=== PATIENT | male | born 1940 | race Caucasian/White ===

== ENCOUNTER 2018-05-19 11:49 | Day surgery (SDC) | payer MEDICARE ==
[~2018-05-19] VITALS: Ht 172.7 cm; Wt 93.5 kg
[2018-05-19] VITALS (9 sets, daily range): BP systolic 113–167; BP diastolic 63–79
[2018-05-19] MEDS ORDERED: ASPI81TA52 PO (12:28)
[2018-05-19] MEDS ORDERED: OMEP40CA37 PO (12:30)
[2018-05-19] MEDS ORDERED: PRAV80TA3 PO (12:30)
[2018-05-19] MEDS ORDERED: sod bicarbonate 150mEq in D5W 1,150 ML IV ONE ×2 (12:30→20:30)
[2018-05-19] MEDS ORDERED: BUDE10.22 INH (12:31)
[2018-05-19] MEDS ORDERED: HYDR25TA4 PO (12:32)
[2018-05-19] MEDS ORDERED: LISI40TA4 PO (12:32)
[2018-05-19] MEDS ORDERED: LORA1TAB PO (12:33)
[2018-05-19] MEDS ORDERED: ZOLP10TA5 PO (12:34)
[2018-05-19] MEDS ORDERED: AMOX500C2 PO (12:35)
[2018-05-19 12:38] LABS: BASOPHILS # (AUTO) 0.1 X10'3 (0-0.2); BASOPHILS % (AUTO) 0.7 % (0-1); EOSINOPHILS # (AUTO) 0.3 X10'3 (0-0.9); EOSINOPHILS % (AUTO) 3.1 % (0-6); LYMPHOCYTES # (AUTO) 1.7 X10'3 (1.1-4.8); LYMPHOCYTES % (AUTO) 20.4 % (21-51); MEAN CORPUSCULAR HEMOGLOBIN 32.7 PG (27.0-31.0); MEAN CORPUSCULAR HGB CONC 34.3 % (33.0-36.5); MEAN CORPUSCULAR VOLUME 95.3 FL (78-98); MEAN PLATELET VOLUME 6.9 FL (7.4-10.4); MONOCYTES # (AUTO) 0.7 X10'3 (0-0.9); MONOCYTES % (AUTO) 8.5 % (2-12); NEUTROPHILS # (AUTO) 5.6 X10'3 (1.8-7.7); NEUTROPHILS % (AUTO) 67.3 % (42-75); PRE OP HEMATOCRIT 48.8 % (42.0-52.0); PRE OP HEMOGLOBIN 16.7 g/dL (14.0-17.9); PRE OP PLATELET COUNT 236 X10'3 (140-440); RED BLOOD COUNT 5.12 X10'6 (4.70-6.10)
[2018-05-19] MEDS ORDERED: pneumococcal 23-VAL P-sac vacc 25 mcg/0.5ml vial IMVAC ONE (12:55)
[2018-05-19 13:08] LABS: PROTHROMBIN TIME 10.1 SECONDS (9.0-12.0)
[2018-05-19 13:12] LABS: ANION GAP 13 (8-16); BLOOD UREA NITROGEN 15 MG/DL (7-18); CALCIUM 9.4 MG/DL (8.5-10.1); CHLORIDE 100 MMOL/L (99-107); CREATININE 1.07 MG/DL (0.60-1.10); GLUCOSE 94 MG/DL (70-104); MAGNESIUM 1.8 MG/DL (1.5-2.4); POTASSIUM 4.1 MMOL/L (3.5-5.1); SODIUM 136 MMOL/L (135-145); TOTAL CARBON DIOXIDE 22.7 MMOL/L (24-32); eGFR 67 ML/MIN
[2018-05-19] MEDS ORDERED: midazolam 2 mg/2 ml injection ONE ×2 (14:58→15:30)
[2018-05-19] MEDS ORDERED: fentaNYL/PF 50MCG/1 ML 2ML syringe ONE (14:59)
[2018-05-19] MEDS ORDERED: iohexol 350MG/ML 100ml bottle IV ONE (14:59)
[2018-05-19] MEDS ORDERED: LIDOcaine 1% 30ml preserv. free vial ONE (14:59)
[2018-05-19] MEDS ORDERED: iohexol 350 MG/ML 50ML vial IV ONE (14:59)
[2018-05-19] MEDS ORDERED: normal saline 1000ml 1,000 ML IV SCH (17:30)
== END 2018-05-19 19:20 | disposition home or self-care (01) ==
LOC: SSTAY O 11:49
PROVIDERS: ATTEND Internal Medicine Cardiovascular Disease
DX: I25.10 Atherosclerotic heart disease of native coronary artery without angina pectoris (principal); I35.0 Nonrheumatic aortic (valve) stenosis; I10 Essential (primary) hypertension; E78.5 Hyperlipidemia, unspecified; I45.2 Bifascicular block; K21.9 Gastro-esophageal reflux disease without esophagitis; J45.998 Other asthma; I44.0 Atrioventricular block, first degree; I49.5 Sick sinus syndrome; I35.8 Other nonrheumatic aortic valve disorders; Z79.82 Long term (current) use of aspirin; Z79.2 Long term (current) use of antibiotics; Z23 Encounter for immunization; Z87.891 Personal history of nicotine dependence; Z72.89 Other problems related to lifestyle; Z85.828 Personal history of other malignant neoplasm of skin; Z88.8 Allergy status to other drugs, medicaments and biological substances; Z79.899 Other long term (current) drug therapy; Z98.890 Other specified postprocedural states; Z83.3 Family history of diabetes mellitus; Z82.49 Family history of ischemic heart disease and other diseases of the circulatory system
CPT/HCPCS: 36415; 80048; 83735; 85025; 85610; 90732; 93005; 93460; 99152; 99153; A6257; C1769; C1894; J1644; J2250; J3010; J3490; J7030; Q9967; A4620

== ENCOUNTER 2024-08-14 07:24 | Day surgery (SDC) | payer MEDICARE, OTHER ==
[~2024-08-14] VITALS: Ht 175.3 cm; Wt 100.5 kg
[2024-08-14] VITALS (9 sets, daily range): BP systolic 117–160; BP diastolic 68–99; PULSE 64–85; RESP 14–18; TEMP 97.9; O2SAT 92–96
[~2024-08-14 07:24] MED LIST: AMOX500C2 PO; ASPI81TA52 PO; BUDE10.22 INH; HYDR25TA4 PO; LISI40TA13 PO; LORA1TAB PO; OMEP40CA21 PO; PRAV80TA3 PO; ZOLP10TA5 PO
[2024-08-14] MEDS ORDERED: CLOP75TA34 PO (08:22)
[2024-08-14] MEDS ORDERED: ALLO100T PO (08:22)
[2024-08-14] MEDS ORDERED: ALBU17AE26 (08:22)
[2024-08-14] MEDS ORDERED: DONE10TA19 PO (08:22)
[2024-08-14] MEDS: VANCOMYCIN 1GM 200ML H20 (PEG) 200 ML IV ONE (09:19)
[2024-08-14] MEDS: normal saline 1000ml 1,000 ML IV SCH (09:20)
[2024-08-14 09:31] LABS: PROTHROMBIN TIME 10.3 SECONDS (9.0-12.0)
[2024-08-14 09:36] LABS: ALBUMIN 3.3 G/DL (3.4-5.0); BLOOD UREA NITROGEN 11 MG/DL (7-18); BUN/CREATININE RATIO 11.2 (10.0-20.0); CALCIUM 9.9 MG/DL (8.5-10.1); CREATININE 0.98 MG/DL (0.60-1.10); GLUCOSE 108 MG/DL (70-104); MAGNESIUM 2.1 MG/DL (1.5-2.4); TOTAL CARBON DIOXIDE 25.7 MMOL/L (24-32); eCRCL 58 ML/MIN; eGFR 73 ML/MIN
[2024-08-14 09:39] LABS: BASOPHILS # (AUTO) 0.1 X10'3 (0-0.2); EOSINOPHILS # (AUTO) 0.4 X10'3 (0-0.9); EOSINOPHILS % (AUTO) 4.4 % (0-6); HEMATOCRIT 48.2 % (42.0-52.0); HEMOGLOBIN 16.4 g/dl (14.0-17.9); LYMPHOCYTES # (AUTO) 2.6 X10'3 (1.1-4.8); LYMPHOCYTES % (AUTO) 30.5 % (21-51); MEAN CORPUSCULAR HEMOGLOBIN 31.4 PG (27.0-31.0); MEAN CORPUSCULAR HGB CONC 34.1 g/dL (33.0-36.5); MEAN CORPUSCULAR VOLUME 92.1 FL (78-98); MONOCYTES % (AUTO) 11.8 % (2-12); NEUTROPHILS # (AUTO) 4.5 X10'3 (1.8-7.7); NEUTROPHILS % (AUTO) 52.3 % (42-75); PLATELET COUNT 263 X10'3 (140-440); RED BLOOD COUNT 5.23 X10'6 (4.70-6.10); RED CELL DISTRIBUTION WIDTH 14.2 % (11.5-14.5); WHITE BLOOD COUNT 8.5 X10'3 (4.5-11.0)
[2024-08-14 09:48] LABS: ANION GAP 9 (8-16); CHLORIDE 105 MMOL/L (99-107); POTASSIUM 3.8 MMOL/L (3.5-5.1); SODIUM 140 MMOL/L (135-145)
[2024-08-14] MEDS ORDERED: midazolam 1 mg/ML 2ml injection ONE ×2 (10:03→11:42)
[2024-08-14] MEDS ORDERED: iohexol 350 MG/ML 50ML vial IV ONE (10:03)
[2024-08-14] MEDS ORDERED: vancomycin 1,000mg inj ONE (10:03)
[2024-08-14] MEDS ORDERED: fentaNYL/PF 50MCG/1 ML 2ML syringe ONE (10:03)
[2024-08-14] MEDS ORDERED: LIDOcaine 1% W/epiNEPHrine 1:100,000 20ml vial ONE (10:03)
[2024-08-14] MEDS ORDERED: ceFAZolin 1000mg inj ONE (11:10)
[2024-08-14] MEDS ORDERED: HYDROmorphone 1 mg/ml syringe ONE (11:57)
[2024-08-14] MEDS ORDERED: normal saline 1000ml 1,000 ML IV SCH (13:20)
[2024-08-14] MEDS ORDERED: HYDROcodone/acetaminophen 10/325mg tab PO PRN (13:20)
[2024-08-14] MEDS ORDERED: HYDROcodone/acetaminophen 5mg/325mg tablet PO PRN (13:20)
== END 2024-08-14 15:00 | disposition home or self-care (01) ==
LOC: SSTAY O 07:24
PROVIDERS: ATTEND Internal Medicine Cardiovascular Disease
DX: I49.5 Sick sinus syndrome (principal); I45.2 Bifascicular block; R94.31 Abnormal electrocardiogram [ECG] [EKG]; I11.9 Hypertensive heart disease without heart failure; I25.118 Atherosclerotic heart disease of native coronary artery with other forms of angina pectoris; E78.5 Hyperlipidemia, unspecified; K21.9 Gastro-esophageal reflux disease without esophagitis; J45.909 Unspecified asthma, uncomplicated; M10.9 Gout, unspecified; Z87.891 Personal history of nicotine dependence; Z79.82 Long term (current) use of aspirin; Z79.02 Long term (current) use of antithrombotics/antiplatelets; Z79.899 Other long term (current) drug therapy; Z95.2 Presence of prosthetic heart valve; Z95.5 Presence of coronary angioplasty implant and graft; Z98.890 Other specified postprocedural states; Z88.8 Allergy status to other drugs, medicaments and biological substances; Z82.49 Family history of ischemic heart disease and other diseases of the circulatory system; Z83.3 Family history of diabetes mellitus
CPT/HCPCS: 33208; 36415; 71045; 80048; 83735; 85025; 85610; 93005; 99152; 99153; A4565; C1785; J0690; J1171; J2250; J3010; J3370; J3372; J3490; J7030; Z7610; C1898; Q9967

== ENCOUNTER 2024-09-04 21:01 | Inpatient (IN) | payer OTHER, MEDICARE ==
[~2024-09-04] VITALS: Ht 175.3 cm; Wt 100.0 kg
[~2024-09-04 21:01] MED LIST changes: +ALBU17AE26; +ALLO100T PO; -AMOX500C2 PO; +CLOP75TA34 PO; +DONE10TA19 PO; -HYDR25TA4 PO; -LISI40TA13 PO; -PRAV80TA3 PO; -ZOLP10TA5 PO
[2024-09-04 21:40] LABS: BASOPHILS % (AUTO) 0.3 % (0-1); EOSINOPHILS # (AUTO) 0.1 X10'3 (0-0.9); EOSINOPHILS % (AUTO) 1.2 % (0-6); HEMATOCRIT 47.9 % (42.0-52.0); HEMOGLOBIN 16.2 g/dl (14.0-17.9); LYMPHOCYTES # (AUTO) 0.7 X10'3 (1.1-4.8); LYMPHOCYTES % (AUTO) 6.9 % (21-51); MEAN CORPUSCULAR HEMOGLOBIN 31.6 PG (27.0-31.0); MEAN CORPUSCULAR HGB CONC 33.9 g/dL (33.0-36.5); MEAN CORPUSCULAR VOLUME 93.1 FL (78-98); MEAN PLATELET VOLUME 7.1 FL (7.4-10.4); MONOCYTES # (AUTO) 0.9 X10'3 (0-0.9); MONOCYTES % (AUTO) 8.7 % (2-12); NEUTROPHILS # (AUTO) 8.5 X10'3 (1.8-7.7); NEUTROPHILS % (AUTO) 82.9 % (42-75); PLATELET COUNT 169 X10'3 (140-440); RED BLOOD COUNT 5.14 X10'6 (4.70-6.10); RED CELL DISTRIBUTION WIDTH 14.5 % (11.5-14.5); WHITE BLOOD COUNT 10.3 X10'3 (4.5-11.0)
[2024-09-04] MEDS: normal saline 1000ml 1,000 ML IV ONE (21:44)
[2024-09-04] MEDS: acetaminophen 1,000mg/100ml IV 100 ML IV ONE (21:44)
[2024-09-04 22:08] LABS: ALANINE AMINOTRANSFERASE 21 U/L (12-78); ALBUMIN 3.6 G/DL (3.4-5.0); ALKALINE PHOSPHATASE 81 IU/L (46-116); ANION GAP 8 (8-16); ASPARTATE AMINO TRANSFERASE 10 U/L (10-37); BILIRUBIN,TOTAL 0.4 MG/DL (0.1-1.0); BLOOD UREA NITROGEN 13 MG/DL (7-18); BUN/CREATININE RATIO 11.1 (10.0-20.0); CALCIUM 9.6 MG/DL (8.5-10.1); CHLORIDE 103 MMOL/L (99-107); CREATININE 1.17 MG/DL (0.60-1.10); GLUCOSE 141 MG/DL (70-104); POTASSIUM 4.5 MMOL/L (3.5-5.1); PRO BRAIN NATRIURETIC PEPTIDE 416 PG/ML (0-450); SODIUM 134 MMOL/L (135-145); TOTAL CARBON DIOXIDE 23.2 MMOL/L (24-32); TOTAL PROTEIN 7.2 G/DL (6.4-8.2); eCRCL 49 ML/MIN; eGFR 60 ML/MIN
[2024-09-04] MEDS: CefTRIAXone 2gm/D5W 50ml BAG 50 ML IV ONE (22:10)
[2024-09-04 22:20] LABS: BILIRUBIN,URINE NEGATIVE (Neg); CLARITY,URINE CLEAR (Clear); COLOR,URINE YELLOW (Yellow); GLUCOSE, URINE NEGATIVE (Neg); KETONES,URINE NEGATIVE (Neg); LEUKOCYTE ESTERASE ,URINE NEGATIVE (Neg); NITRITES, URINE NEGATIVE (Neg); OCCULT BLOOD,URINE NEGATIVE (Neg); PROTEIN,URINE 100 mg/dl (Neg); UROBILINOGEN,URINE 0.2 E.U/dL (0.2-1.0)
[2024-09-04 22:26] LABS: UA COLLECTION TYPE NON-SPECIFIED
[2024-09-04 22:27] LABS: WBC,URINE NONE SEEN /HPF (0-4)
[2024-09-04 22:28] LABS: BACTERIA,URINE NONE SEEN /HPF (Neg); RBC,URINE 0-2 /HPF (0-2); SQUAMOUS EPITHELIAL CELL,UR NONE SEEN /LPF (FEW)
[2024-09-04 22:28] LABS: MAGNESIUM 1.9 MG/DL (1.5-2.4)
[2024-09-04] MEDS: azithromycin/NS 500mg/250ml 250 ML IV ONE (22:49)
[2024-09-04] MEDS ORDERED: acetaminophen 325mg tablet PO ONE (23:10)
[2024-09-04] MEDS ORDERED: albuterol 2.5 MG/3 ML nebule NEB ONE (23:10)
[2024-09-05] VITALS (13 sets, daily range): BP systolic 129–142; BP diastolic 74–90; PULSE 56–96; RESP 16–22; TEMP 97.6–99.3; O2SAT 91–96
[2024-09-05] MEDS ORDERED: magnesium sulf-water 2g/50mL 50 ML IV PRN (00:40)
[2024-09-05] MEDS ORDERED: mag hydrox/Alum hydrox/simeth 30ml oral suspension PO PRN (00:40)
[2024-09-05] MEDS ORDERED: potassium Cl 20 mEq SR tablet PO PRN ×2 (00:40)
[2024-09-05] MEDS ORDERED: ondansetron/PF 4mg/2ml inj IV PRN (00:40)
[2024-09-05] MEDS ORDERED: magnesium sulf-water 4G/100mL 100 ML IV PRN (00:40)
[2024-09-05] MEDS ORDERED: magnesium Cl slow-release 64mg tablet PO PRN (00:40)
[2024-09-05] MEDS ORDERED: magnesium hydroxide 30ml (MOM) UD suspension PO PRN (00:40)
[2024-09-05] MEDS ORDERED: potassium Cl 40MEQ/1/2NS 520ml 520 ML IV PRN (00:40)
[2024-09-05] MEDS ORDERED: acetaminophen 325mg tablet PO PRN (00:40)
[2024-09-05] MEDS ORDERED: ipratropium/albuterol 3ml nebule NEB PRN (01:10)
[2024-09-05] MEDS: normal saline 1000ml 1,000 ML IV SCH (01:28)
[2024-09-05] MEDS: diphenhydrAMINE 50 mg/ml inj IV ONE (01:56)
[2024-09-05] MEDS: hydrocortisone 2.5% cream 28.4gm TP SCH (01:57)
[2024-09-05] MEDS: diphenhydrAMINE 50 mg/ml inj IM ONE (01:57)
[2024-09-05] MEDS: normal saline 1000ml 1,000 ML IV ONE (01:57)
[2024-09-05] MEDS: propranolol 10mg tablet PO SCH (02:03)
[2024-09-05] MEDS ORDERED: CARV6.2553 PO (02:42)
[2024-09-05 03:37] LABS: PRO BRAIN NATRIURETIC PEPTIDE 423 PG/ML (0-450)
[2024-09-05] MEDS: ipratropium/albuterol 3ml nebule NEB SCH (05:31)
[2024-09-05] MEDS: carvedilol 6.25mg tablet PO SCH (08:00)
[2024-09-05] MEDS: Budesonide/Formoterol Fumarate (Symbicort 80-4.5 Mcg Inhaler) IH SCH (08:00)
[2024-09-05] MEDS: docusate sod 100mg capsule PO SCH (08:00)
[2024-09-05] MEDS: methylPREDNISolone sod succ/PF 40mg inj. IV SCH (08:00)
[2024-09-05] MEDS: diphenhydrAMINE 50 mg/ml inj IV SCH (08:00)
[2024-09-05] MEDS ORDERED: hydrocortisone 2.5% cream 28.4gm TP SCH (08:00)
[2024-09-05] MEDS: aspirin 81mg, enteric-coated 1 TAB TABLET.DR PO SCH (08:00)
[2024-09-05] MEDS: clopidogrel 75mg tablet PO SCH (08:00)
[2024-09-05] MEDS: K and/or MAG REPLACEMENT MC SCH (08:00)
[2024-09-05] MEDS: pantoprazole 40mg Tablet.DR PO SCH (08:00)
[2024-09-05] MEDS: heparin, porcine 5000 units/ml vial SQ SCH (08:00)
[2024-09-05] MEDS: azithromycin/NS 500mg/250ml 250 ML IV SCH (08:00)
[2024-09-05] MEDS: CefTRIAXone/D5W-Rocephin 1gm 50 ML IV SCH (08:00)
[2024-09-05 09:49] LABS: CHOL/HDL RATIO 3.8 (0.00-4.99); CHOLESTEROL 164 MG/DL (0-200); HDL CHOLESTEROL 43 MG/DL (35-60); LDL CHOLESTEROL 103 MG/DL (50-100); TRIGLYCERIDES 107 MG/DL (20-135)
[2024-09-05] MEDS: donepezil 5mg tablet PO SCH (20:45)
[2024-09-05] MEDS: loratadine 10mg tablet PO SCH (20:45)
[2024-09-05] MEDS: atorvastatin 20mg tablet PO SCH (20:45)
[2024-09-06] VITALS (8 sets, daily range): BP systolic 145–160; BP diastolic 61–96; PULSE 62–86; RESP 16–18; TEMP 97.7–98.1; O2SAT 93–98
[2024-09-06 06:33] LABS: BASOPHILS % (AUTO) 0.1 % (0-1); EOSINOPHILS % (AUTO) 0 % (0-6); HEMATOCRIT 47.1 % (42.0-52.0); HEMOGLOBIN 15.9 g/dl (14.0-17.9); LYMPHOCYTES % (AUTO) 11.2 % (21-51); MEAN CORPUSCULAR HEMOGLOBIN 31.5 PG (27.0-31.0); MEAN CORPUSCULAR HGB CONC 33.7 g/dL (33.0-36.5); MEAN CORPUSCULAR VOLUME 93.4 FL (78-98); MEAN PLATELET VOLUME 7.6 FL (7.4-10.4); MONOCYTES # (AUTO) 0.2 X10'3 (0-0.9); MONOCYTES % (AUTO) 2.3 % (2-12); NEUTROPHILS # (AUTO) 7.8 X10'3 (1.8-7.7); NEUTROPHILS % (AUTO) 86.4 % (42-75); PLATELET COUNT 168 X10'3 (140-440); RED BLOOD COUNT 5.04 X10'6 (4.70-6.10); RED CELL DISTRIBUTION WIDTH 14.6 % (11.5-14.5)
[2024-09-06 06:59] LABS: ALANINE AMINOTRANSFERASE 18 U/L (12-78); ALBUMIN 3.2 G/DL (3.4-5.0); ALBUMIN/GLOBULIN RATIO 0.9 (1.1-1.5); ALKALINE PHOSPHATASE 66 IU/L (46-116); ANION GAP 11 (8-16); ASPARTATE AMINO TRANSFERASE 12 U/L (10-37); BILIRUBIN,TOTAL 0.4 MG/DL (0.1-1.0); BLOOD UREA NITROGEN 16 MG/DL (7-18); BUN/CREATININE RATIO 18.2 (10.0-20.0); CALCIUM 9.2 MG/DL (8.5-10.1); CHLORIDE 108 MMOL/L (99-107); CREATININE 0.88 MG/DL (0.60-1.10); GLUCOSE 165 MG/DL (70-104); MAGNESIUM 2.1 MG/DL (1.5-2.4); POTASSIUM 3.9 MMOL/L (3.5-5.1); SODIUM 140 MMOL/L (135-145); TOTAL CARBON DIOXIDE 20.9 MMOL/L (24-32); TOTAL PROTEIN 6.7 G/DL (6.4-8.2); eCRCL 65 ML/MIN; eGFR 83 ML/MIN
[2024-09-06] MEDS: propranolol 10mg tablet PO SCH (08:31)
[2024-09-06] MEDS ORDERED: HYDR28CR14 TOP (11:04)
[2024-09-06] MEDS ORDERED: LORA10TA7 PO (11:04)
[2024-09-06] MEDS ORDERED: LACT1CAP26 PO (11:04)
[2024-09-06] MEDS ORDERED: CEFD300C3 PO (11:04)
[2024-09-06] MEDS ORDERED: PRED10TA23 PO (11:04)
[2024-09-06] MEDS ORDERED: methylPREDNISolone sod succ/PF 40mg inj. IV SCH (16:00)
== END 2024-09-06 12:15 | disposition home or self-care (01) | DRG 871 ==
LOC: ER 21:02 → ED HOLD 23:18 → EDBEDREQ 09-05 02:15 → ORTHO 4S 09-05 03:01
PROVIDERS: ADMIT Internal Medicine Critical Care Medicine; ATTEND Family Medicine
DX: A41.9 Sepsis, unspecified organism (principal); J18.9 Pneumonia, unspecified organism; L03.113 Cellulitis of right upper limb; Z20.822 Contact with and (suspected) exposure to COVID-19; I49.5 Sick sinus syndrome; E78.5 Hyperlipidemia, unspecified; J45.909 Unspecified asthma, uncomplicated; N40.0 Benign prostatic hyperplasia without lower urinary tract symptoms; Z95.0 Presence of cardiac pacemaker; Z79.82 Long term (current) use of aspirin; Z79.899 Other long term (current) drug therapy; Z79.01 Long term (current) use of anticoagulants
CPT/HCPCS: 36415; 70450; 71045; 71250; 80053; 80061; 81001; 83036; 83605; 83735; 83880; 84132; 84145; 84484; 85025; 87040; 87081; 87502; 87503; 87811; 93005; 93306; 94640; 94760; 96365; 96367; 97116; 97161; 97530; 99285; A6258; G0378; J0131; J0456; J0696; J1200; J1644; J2919; J7030